=== PATIENT | male | born 1990 | race Two or more races ===

== ENCOUNTER 2019-07-05 11:09 | Emergency (ER) | payer SELFPAY ==
[~2019-07-05] VITALS: Ht 175.3 cm; Wt 86.2 kg
[2019-07-05 11:18] VITALS: BP 102/60
[2019-07-05] MEDS ORDERED: ALBUTEROL SULF 2.5 MG/0.5ML(0.5%) NEB SOLN NEB ONE (12:30)
[2019-07-05] MEDS ORDERED: IPRATROPIUM BROM 0.5 MG/2.5ML INH SOL NEB ONE (12:30)
[2019-07-05] MEDS ORDERED: methylPREDNISolone SOD SUCC 125 MG/2 ML VL IM ONE (12:30)
== END 2019-07-05 13:14 | disposition home or self-care (01) ==
LOC: ER 11:09
DX: J20.9 Acute bronchitis, unspecified (principal); F17.210 Nicotine dependence, cigarettes, uncomplicated
CPT/HCPCS: 71046; 94640; 96372; 99283; J2930; J7611; J7644